=== PATIENT | male | born 1985 | race Caucasian/White ===

== ENCOUNTER 2021-06-20 12:47 | Emergency (ER) | payer OTHER ==
[~2021-06-20 12:47] MED LIST: IBUPROFEN800 MG PO
[2021-06-20 14:07] LABS: HEMOGLOBIN 16.9 gm/dl (14.0-17.5); RED BLOOD COUNT 5.32 M/UL (4.20-5.50); WHITE BLOOD COUNT 10.9 K/UL (4.5-11.0)
[2021-06-20 14:48] LABS: BUN/CREATININE RATIO 26 (0-10)
[2021-06-20] MEDS ORDERED: ZOFRAN4 MG PO (16:18)
== END 2021-06-20 16:29 | disposition home or self-care (01) ==
LOC: ER1 12:47
PROVIDERS: Physician Assistant
DX: R10.30 Lower abdominal pain, unspecified (principal); R11.2 Nausea with vomiting, unspecified; I10 Essential (primary) hypertension; E87.6 Hypokalemia; Z87.891 Personal history of nicotine dependence; Z79.899 Other long term (current) drug therapy
CPT/HCPCS: 80053; 85025; 96374; 99284; J2405; J7030; Q9967

== ENCOUNTER → 2021-07-25 | Outpatient (CLI) | payer OTHER ==
[~2021-07-25] MED LIST changes: +ZOFRAN4 MG PO
== END ==
LOC: KOH-I 13:55
DX: E86.0 Dehydration (principal); I10 Essential (primary) hypertension; R05.1 Acute cough
CPT/HCPCS: 71046

== ENCOUNTER → 2022-01-05 | Outpatient (CLI) | payer OTHER | LOC: HEART 5 15:27 | DX: I10 Essential (primary) hypertension (principal); I08.1 Rheumatic disorders of both mitral and tricuspid valves | CPT/HCPCS: 76775; 93306 ==

== ENCOUNTER 2022-03-11 09:16 | Emergency (ER) | payer OTHER ==
[2022-03-11 10:02] LABS: RED BLOOD COUNT 5.32 M/UL (4.20-5.50); WHITE BLOOD COUNT 13.4 K/UL (4.5-11.0)
[2022-03-11 10:42] LABS: BUN/CREATININE RATIO 28 (0-10)
== END 2022-03-11 14:10 | disposition home or self-care (01) ==
LOC: ER1 09:16
PROVIDERS: Emergency Medicine
DX: R07.9 Chest pain, unspecified (principal); R00.0 Tachycardia, unspecified; I10 Essential (primary) hypertension; Z79.899 Other long term (current) drug therapy
CPT/HCPCS: 71045; 80048; 84484; 85025; 85379; 93005; 96374; 96375; 99285; J2060; J2405

== ENCOUNTER → 2022-05-05 | Outpatient (CLI) | payer OTHER | LOC: OPSV 12:59 | DX: E86.0 Dehydration (principal) | CPT/HCPCS: 96360 ==